=== PATIENT | male | born 1995 | race American Indian/Alaskan Native ===

== ENCOUNTER 2016-12-06 18:24 | Emergency (ER) | payer BC, MEDICAID ==
[2016-12-06 18:35] VITALS: BMI 34.2
[2016-12-06 18:38] VITALS: TEMP 98.1; O2SAT 100
[2016-12-06] MEDS ORDERED: Sodium Chloride 0.9% 1,000 ML IV STA (19:15)
[2016-12-06 19:50] LABS: ADD MANUAL DIFF? NO
[2016-12-06 20:13] LABS: ALB/GLOB RATIO 1.2 (1.1-1.8); ALKALINE PHOSPHATASE 52 U/L (38-133); ALT/SGPT 32 U/L (7-56); AST/SGOT 28 U/L (15-59); BILIRUBIN,TOTAL 0.7 mg/dL (0.2-1.3); BLOOD UREA NITROGEN 13 mg/dL (7-21); CALCIUM 9.1 mg/dL (8.4-10.5); CARBON DIOXIDE 30 mmol/L (21-33); CHLORIDE 103 mmol/L (98-107); GFR AFRICAN-AMERICAN > 60; GLUCOSE,RANDOM 84 mg/dL (70-110); POTASSIUM 3.6 mmol/L (3.6-5.0); SODIUM 139 mmol/L (132-148); TOTAL PROTEIN 6.6 g/dL (5.8-8.3)
[2016-12-06 20:33] LABS: WHITE BLOOD COUNT 4.2 10^3/ul (4.5-11.0)
[2016-12-06 20:34] LABS: BASO % 0.2 % (0.0-3.0); EOS % 0.7 % (1.5-5.0); GRAN # 2.28 (1.4-6.5); HEMATOCRIT 44.4 % (42.0-52.0); LYMPH # 1.5 (1.2-3.4); LYMPH % 34.5 % (22.0-35.0); MEAN CELL VOLUME 82.8 fL (80.0-105.0); MEAN CORPUSCULAR HEMOGLOBIN 26.9 pg (25.0-35.0); MEAN CORPUSCULAR HGB CONC 32.4 g/dl (31.0-37.0); MONO % 10.6 % (1.0-6.0); PLATELET COUNT 212 10^3/uL (120.0-450.0); RED CELL DISTRIBUTION WIDTH 14.8 % (11.5-14.5)
[2016-12-06 20:35] LABS: BASO # 0.01 K/mm3 (0.0-2.0); MONO # 0.5 (0.1-0.6)
[2016-12-06 21:34] VITALS: RESP 18
--- NOTE | 2016-12-06 22:33 | ED PDOC ---
Arrival/HPI - General Chief Complaint: Dizziness/Lightheaded Time Seen by Provider: 12/06/16 19:14 Historian: Patient - History of Present Illness Narrative History of Present Illness (Text): 12/06/16 22:29 20-year-old male presents today with a one-month history of intermittent dizziness. Patient states for the past month and a half or so while at work when bending over he starts to feel dizzy to the point where he is about to pass out. Patient states it lasts for about "20 [place]'s" and then improves. Patient denies any recent trauma or injury. Patient states occasionally he smokes marijuana. He denies chest pain or shortness of breath. He denies abdominal pain. Patient states these have been occurring on and off over the past month and a half. Patient states this happened today while at work and he did not feel well so he came to the hospital for evaluation. Time/Duration: > month Symptom Onset: Sudden Symptom Course: Intermittent Quality: Other (no pain) Past Medical History - Provider Review Nursing Documentation Reviewed: Yes - Travel History Have you recently traveled outside [place] w/in the past 3 mons?: No - Infectious Disease Hx of Infectious Diseases: None - Psychiatric Hx Substance Use: Yes - Anesthesia Hx Anesthesia: No Family/Social History - Physician Review Nursing Documentation Reviewed: Yes Family/Social History: Unknown Family HX Smoking Status: Never Smoked Hx Alcohol Use: Yes Frequency of alcohol use: Socially Hx Substance Use: Yes Substance used: weed Allergies/Home Meds Allergies/Adverse Reactions: Allergies No Known Allergies Allergy (Verified 12/06/16 18:34) Review of Systems - Review of Systems Constitutional: absent: Fatigue, Fevers Eyes: absent: Vision Changes, Photophobia, Eye Pain ENT: absent: Sinus Congestion Respiratory: absent: SOB, Cough Cardiovascular: absent: Chest Pain, Palpitations Gastrointestinal: absent: Abdominal Pain, Nausea, Vomiting Genitourinary Male: absent: Dysuria, Frequency Musculoskeletal: absent: Arthralgias, Back Pain, Neck Pain Skin: absent: Rash, Pruritis Neurological: Dizziness. absent: Headache Psychiatric: absent: Anxiety, Depression, Suicidal Ideation Physical Exam Vital Signs Reviewed: Yes Vital Signs Temp Pulse Resp BP Pulse Ox 12/06/16 23:48 60 18 124/59 L 100 12/06/16 21:33 63 18 127/63 100 12/06/16 18:38 98.1 F 73 19 115/72 100 Temperature: Afebrile Blood Pressure: Normal Pulse: Regular Respiratory Rate: Normal Appearance: Positive for: Well-Appearing, Non-Toxic, Comfortable Pain Distress: None Mental Status: Positive for: Alert and Oriented X 3 - Systems Exam Head: Present: Atraumatic Pupils: Present: PERRL Extroacular Muscles: Present: EOMI Conjunctiva: Present: Normal Ears: Present: Normal, NORMAL TM Mouth: Present: Moist Mucous Membranes Pharnyx: Present: Normal. No: ERYTHEMA Nose (Internal): Present: Normal Inspection Neck: Present: Normal Range of Motion Respiratory/Chest: Present: Clear to Auscultation, Good Air Exchange. No: Respiratory Distress, Accessory Muscle Use Cardiovascular: Present: Regular Rate and Rhythm, Normal S1, S2. No: Murmurs Abdomen: Present: Normal Bowel Sounds. No: Tenderness, Distention, Peritoneal Signs, Rebound, Guarding Back: Present: Normal Inspection Upper Extremity: Present: Normal ROM Lower Extremity: Present: Normal ROM Neurological: Present: GCS=15, Speech Normal, Motor Func Grossly Intact, Normal Sensory Function Skin: Present: Warm, Dry, Normal Color. No: Rashes Psychiatric: Present: Alert, Oriented x 3 Medical Decision Making ED Course and Treatment: 12/06/16 22:42 20-year-old male with a one to 2 month history of dizziness intermittently usually while bending over. CBC within normal limits CMP within normal limits Urinalysis: WNL Urine drug screen: + marijuana trop; wnl ckp; 341 EKG shows sinus bradycardia at 57 bpm normal axis normal interval and no ST elevation ct head; FINDINGS: Brain: Unremarkable. No hemorrhage. No significant white matter disease. No edema. Ventricles: Unremarkable. No ventriculomegaly. Bones/joints: Unremarkable. No acute fracture. Soft tissues: Unremarkable. Sinuses: Unremarkable as visualized. No acute sinusitis. Mastoid air cells: Unremarkable as visualized. No mastoid effusion. Other findings: No acute findings. IMPRESSION: No acute findings 12/06/16 22:46 NS iv bolus given antivert po tylenol po discussed all results with patient/parent in depth; advised stop using marijuana / f/u with the neurologist within the next 2 days. pt reassessment; ambulates with steady gait; denies dizziness at present time. Patient verbalizes understanding of discharge instructions and need for immediate followup. all aspects of this case were discussed the attending of record. Impression: Dizziness, marijuana usage Increase fluids Meclizine every 8 hours as needed for dizziness follow up with the neurologist within the next 2 days follow up with the primary care physician within the next 2 days return if symptoms worsen,persist or if new symptoms develop . 12/07/16 00:08 - Lab Interpretations Lab Results: 12/06/16 19:45 12/06/16 19:45 Lab Results 12/06/16 22:35: Urine Opiates Screen Negative, Urine Methadone Screen Negative, Ur Barbiturates Screen Negative, Ur Phencyclidine Scrn Negative, Ur Amphetamines Screen Negative, U Benzodiazepines Scrn Negative, U Oth Cocaine Metabols Negative, U Cannabinoids Screen Positive H 12/06/16 22:35: Urine Color Yellow, Urine Appearance Clear, Urine pH 6.0, Ur Specific [place] >= 1.030, Urine Protein Trace H, Urine Glucose (UA) Negative, Urine Ketones Negative, Urine Blood Negative, Urine Nitrate Negative, Urine Bilirubin Negative, Urine Urobilinogen 1.0 H, Ur Leukocyte Esterase Negative, Urine RBC 0 - 2, Urine WBC 1 - 3, Ur Epithelial Cells 0 - 2, Urine Bacteria Small, Urine Other Mucus 12/06/16 19:45: Lactate Dehydrogenase 473, Total Creatine Kinase 341 H, CK-MB ( CK-2) 2.1, CK-MB (CK-2) % Cancelled, Troponin I < 0.01 12/06/16 19:45: WBC 4.2 L, RBC 5.36, Hgb 14.4, Hct 44.4, MCV 82.8, MCH 26.9, MCHC 32.4, RDW 14.8 H, Plt Count 212, MPV 10.0, Gran % 54.0, Lymph % (Auto) 34.5 , [place] % (Auto) 10.6 H, Eos % (Auto) 0.7 L, Baso % (Auto) 0.2, Gran # 2.28, Lymph # 1.5, [place] # 0.5, Eos # 0.0, Baso # 0.01 12/06/16 19:45: Sodium 139, Potassium 3.6, Chloride 103, Carbon Dioxide 30, Anion Gap 10, BUN 13, Creatinine 0.8, Est GFR ( Amer) > 60, Est GFR (Non- Af Amer) > 60, Random Glucose 84, Calcium 9.1, Total Bilirubin 0.7, AST 28, ALT 32, Alkaline Phosphatase 52, Total Protein 6.6, Albumin 3.6, Globulin 3.0, Albumin/Globulin Ratio 1.2 - RAD Interpretation Radiology Orders: 12/06/16 20:11 HEAD W/O CONTRAST [CT] Stat - Medication Orders Current Medication Orders: Discontinued Medications Acetaminophen (Tylenol 325mg Tab) 975 mg PO STAT STA Stop: 12/06/16 23:27 Last Admin: 12/06/16 23:41 Dose: 975 mg Sodium Chloride (Sodium Chloride 0.9%) 1,000 mls @ 999 mls/hr IV .Q1H1M STA Stop: 12/06/16 20:15 Last Admin: 12/06/16 20:09 Dose: 999 mls/hr Meclizine HCl (Antivert) 25 mg PO STAT STA Stop: 12/06/16 23:26 Last Admin: 12/06/16 23:41 Dose: 25 mg Disposition/Present on Arrival - Present on Arrival Any Indicators Present on Arrival: No History of DVT/PE: No History of Uncontrolled Diabetes: No Urinary Catheter: No History of Decub. Ulcer: No History Surgical Site Infection Following: None - Disposition Have Diagnosis and Disposition been Completed?: Yes Diagnosis: Dizziness, Marijuana use Disposition: HOME/ ROUTINE Disposition Time: 23:42 Patient Plan: Discharge Condition: GOOD Discharge Instructions (ExitCare): Dizziness (ED) Additional Instructions: Increase fluids Meclizine every 8 hours as needed for dizziness follow up with the neurologist within the next 2 days follow up with the primary care physician within the next 2 days return if symptoms worsen,persist or if new symptoms develop . Prescriptions: Meclizine [Meclizine*] 25 mg PO Q8 #10 tab Referrals: Meet Pérez MD [Staff Provider] - Follow up with primary [facility] [place] - Follow up with primary Kim Claros MD [Staff Provider] - Follow up with primary Forms: WORK NOTE
[2016-12-06 22:51] LABS: URINE BILIRUBIN NEGATIVE (NEGATIVE); URINE BLOOD NEGATIVE (NEGATIVE); URINE GLUCOSE (UA) NEGATIVE (NEGATIVE); URINE KETONE NEGATIVE (NEGATIVE); URINE LEUKOCYTE ESTERASE NEGATIVE Leu/uL (NEGATIVE); URINE PROTEIN TRACE mg/dL (<30 mg/dL)
[2016-12-06 22:55] LABS: TROPONIN I < 0.01 ng/mL
[2016-12-06 22:56] LABS: URINE APPEARANCE CLEAR (CLEAR); URINE COLOR YELLOW (YELLOW)
[2016-12-06 23:18] LABS: URINE BACTERIA SMALL (NEG); URINE EPITHELIAL CELLS 0 - 2 /hpf (0-5); URINE RBC 0 - 2 /hpf (0-2)
[2016-12-06 23:48] VITALS: BP 124/59; PULSE 60
--- NOTE | 2016-12-07 07:44 | CT ---
PROCEDURE: CT HEAD WITHOUT CONTRAST. HISTORY: DIZZINESS COMPARISON: None available. TECHNIQUE: Axial computed tomography images were obtained through the head/brain without intravenous contrast. Radiation dose: Total exam DLP = 677.45 mGy-cm. This CT exam was performed using one or more of the following dose reduction techniques: Automated exposure control, adjustment of the mA and/or kV according to patient size, and/or use of iterative reconstruction technique. FINDINGS: HEMORRHAGE: No intracranial hemorrhage. BRAIN: No mass effect or edema. No atrophy or chronic microvascular ischemic changes. No evidence of acute infarct. VENTRICLES: Unremarkable. No hydrocephalus. CALVARIUM: Unremarkable. PARANASAL SINUSES: Unremarkable as visualized. No significant inflammatory changes. MASTOID AIR CELLS: Unremarkable as visualized. No inflammatory changes. OTHER FINDINGS: None. IMPRESSION: No intracranial mass, hemorrhage or evidence of acute infarct. Preliminary interpretation of this examination was reported by [facility] at 8:38 p.m. on 12/06/2016. There is concurrence of this report with the preliminary interpretation.
--- NOTE | 2016-12-07 23:01 | CARD ---
APPROVED REPORT EKG Measurement Heart [id number] CO [id number] <Conclusion> Sinus bradycardia Nonspecific T wave abnormality Abnormal ECG
== END 2016-12-07 00:05 | disposition home or self-care (01) ==
LOC: ED 18:24
DX: F12.90 Cannabis use, unspecified, uncomplicated (principal); R42 Dizziness and giddiness
CPT/HCPCS: 70450; 80053; 81001; 82550; 82553; 83615; 84484; 85025; 93005; 96360; 99285; G0480; J7040

== ENCOUNTER 2017-01-01 16:44 | Emergency (ER) | payer BC, MEDICAID ==
[2017-01-01 16:54] VITALS: BMI 33.2
[2017-01-01 16:57] VITALS: RESP 18; TEMP 98.2; O2SAT 98
[2017-01-01] MEDS ORDERED: Sodium Chloride 0.9% 1,000 ML IV STA (17:09)
--- NOTE | 2017-01-01 17:13 | ED PDOC ---
Arrival/HPI - General Chief Complaint: Chest Pain Time Seen by Provider: 01/01/17 16:54 Historian: Patient, Parent - History of Present Illness Narrative History of Present Illness (Text): 01/01/17 17:10 21 y/o male, no pmh, psychiatric history including drug abuse, work in [employer], c/o chest pain started last night. Pt. stated that he started to have the chest pain started around 6pm last night after he was partying with drinking alcohol and smoking marijuanna, no coughing or night sweat, no dizziness, no shortness of breath or coughing, no palpitation, no numbness or tingling, no other medical or psychological complaints. Past Medical History - Provider Review Nursing Documentation Reviewed: Yes - Infectious Disease Hx of Infectious Diseases: None - Psychiatric Hx Substance Use: Yes - Anesthesia Hx Anesthesia: No Family/Social History - Physician Review Nursing Documentation Reviewed: Yes Family/Social History: Unknown Family HX Smoking Status: Light Smoker < 10 Cigarettes Daily Hx Alcohol Use: Yes Frequency of alcohol use: Socially Hx Substance Use: Yes Substance used: weed Allergies/Home Meds Allergies/Adverse Reactions: Allergies No Known Allergies Allergy (Verified 01/01/17 16:53) Home Medications: Home Meds Medication Instructions Recorded Confirmed No Known Home Med 01/01/17 01/01/17 Review of Systems - Review of Systems Constitutional: absent: Fatigue, Fevers Eyes: absent: Vision Changes ENT: absent: Hearing Changes Respiratory: absent: SOB, Cough, Sputum Cardiovascular: absent: Chest Pain Gastrointestinal: absent: Abdominal Pain, Nausea, Vomiting Musculoskeletal: absent: Arthralgias, Back Pain, Neck Pain Skin: absent: Rash, Pruritis Neurological: absent: Headache, Dizziness, Focal Weakness, Gait Changes Psychiatric: absent: Anxiety, Depression, Suicidal Ideation Physical Exam Vital Signs Temp Pulse Resp BP Pulse Ox 01/01/17 17:56 72 18 125/65 98 01/01/17 16:56 98.2 F 76 18 127/64 98 Temperature: Afebrile Blood Pressure: Normal Pulse: Regular Respiratory Rate: Normal Appearance: Positive for: Well-Appearing, Non-Toxic, Comfortable Pain Distress: None Mental Status: Positive for: Alert and Oriented X 3 - Systems Exam Head: Present: Atraumatic, Normocephalic Pupils: Present: PERRL Extroacular Muscles: Present: EOMI Conjunctiva: Present: Normal Ears: Present: NORMAL TM, Normal Canal. No: Erythema Mouth: Present: Moist Mucous Membranes Neck: Present: Normal Range of Motion Respiratory/Chest: Present: Clear to Auscultation, Good Air Exchange. No: Respiratory Distress, Accessory Muscle Use, Wheezes, Decreased Breath Sounds, Rales, Retracting, Rhonchi, Tachypneic, Tender to Palpation Cardiovascular: Present: Regular Rate and Rhythm, Normal S1, S2. No: Murmurs Abdomen: Present: Normal Bowel Sounds. No: Tenderness, Distention, Peritoneal Signs Back: Present: Normal Inspection Upper Extremity: Present: Normal Inspection. No: Cyanosis, Edema Lower Extremity: Present: Normal Inspection. No: Edema Neurological: Present: GCS=15, CN II-XII Intact, Speech Normal, Motor Func Grossly Intact, Gait Normal, Memory Normal Skin: Present: Warm, Dry, Normal Color. No: Rashes Psychiatric: Present: Alert, Oriented x 3, Normal Insight, Normal Concentration Medical Decision Making ED Course and Treatment: 01/01/17 17:15 -labs/uds/alcohol -EKG -Chest xray 01/01/17 19:42 -EKG: NSR @ 76 BPM, no ST elevation or depression, no T wave inversion compared with previous ekg. -Chest xray show no active disease -Troponin is negative after onset of the pain 24 hours ago, asymptomatic now. -Labs show no acute findings -UDS show +cannabinoid which it was positive from last visit as well. -Pt. feels well, no chest pain or shortness of breath, awake and alert, explained all labs and radiology results to the patient which I advised him to have outpatient fishing tool operator and pmd follow up. -Discharge home with education on bed rest, stay hydrated, no gym or exercise until clear by the fishing tool operator and pmd, follow up with your own pmd and fishing tool operator within 2 days, return to the ER for any new or worsening signs or symptoms. - Lab Interpretations Lab Results: 01/01/17 17:30 01/01/17 17:30 Lab Results 01/01/17 18:00: Urine Opiates Screen Negative, Urine Methadone Screen Negative, Ur Barbiturates Screen Negative, Ur Phencyclidine Scrn Negative, Ur Amphetamines Screen Negative, U Benzodiazepines Scrn Negative, U Oth Cocaine Metabols Negative, U Cannabinoids Screen Positive H 01/01/17 17:30: Alcohol, Quantitative < 10 01/01/17 17:30: Sodium 138, Potassium 3.9, Chloride 105, Carbon Dioxide 26, Anion Gap 11, BUN 13, Creatinine 0.8, Est GFR ( Amer) > 60, Est GFR (Non- Af Amer) > 60, Random Glucose 92, Calcium 9.1, Total Bilirubin 0.5, AST 28, ALT 33, Alkaline Phosphatase 77, Lactate Dehydrogenase 476, Total Creatine Kinase 303 H, CK-MB (CK-2) Pending, CK-MB (CK-2) % Pending, Troponin I < 0.01, Total Protein 6.5, Albumin 3.7, Globulin 2.8, Albumin/Globulin Ratio 1.3, Lipase 34 01/01/17 17:30: WBC 4.9, RBC 5.32, Hgb 14.7, Hct 44.9, MCV 84.4, MCH 27.6, MCHC 32.7, RDW 14.6 H, Plt Count 196, MPV 9.6, Gran % 61.3, Lymph % (Auto) 30.4, [place] % (Auto) 7.1 H, Eos % (Auto) 1.0 L, Baso % (Auto) 0.2, Gran # 3.02, Lymph # 1.5, [place] # 0.4, Eos # 0.1, Baso # 0.01 I have reviewed the lab results: Yes Interpretation: No clinic. lab abnormalty - RAD Interpretation Radiology Orders: 01/01/17 17:09 CHEST PORTABLE [RAD] Stat no active disease Consultant Education: Radiologist - Medication Orders Current Medication Orders: Discontinued Medications Sodium Chloride (Sodium Chloride 0.9%) 1,000 mls @ 999 mls/hr IV .Q1H1M STA Stop: 01/01/17 18:09 Last Admin: 01/01/17 18:50 Dose: 999 mls/hr - PA / PROPERTY ECONOMIST / Resident Statement MD/DO has reviewed & agrees with the documentation as recorded. Disposition/Present on Arrival - Present on Arrival Any Indicators Present on Arrival: No History of DVT/PE: No History of Uncontrolled Diabetes: No Urinary Catheter: No History of Decub. Ulcer: No History Surgical Site Infection Following: None - Disposition Have Diagnosis and Disposition been Completed?: Yes Diagnosis: History of chest pain, Atypical chest pain, Drug abuse Disposition: HOME/ ROUTINE Disposition Time: 18:53 Patient Plan: Discharge Patient Problems: Current Active Problems Problem Status Onset Atypical chest pain Acute Drug abuse Acute History of chest pain Acute Condition: GOOD Discharge Instructions (ExitCare): Chest Pain (ED) Print Language: UKRAINIAN Additional Instructions: Discharge home with education on bed rest, stay hydrated, no gym or exercise until clear by the fishing tool operator and pmd, follow up with your own pmd and fishing tool operator within 2 days, return to the ER for any new or worsening signs or symptoms. Referrals: Angélica Martinez MD [Primary Care Provider] - Follow up with primary Suly Perez MD [Staff Provider] - Follow up with primary Forms: WORK NOTE
--- NOTE | 2017-01-01 17:24 | RAD ---
HISTORY: Medical clearance. Portable study 17:11. COMPARISON: No prior. FINDINGS: LUNGS: No active pulmonary disease. PLEURA: No significant pleural effusion identified, no pneumothorax apparent. CARDIOVASCULAR: Normal. OSSEOUS STRUCTURES: No significant abnormalities. VISUALIZED UPPER ABDOMEN: Normal. OTHER FINDINGS: None. IMPRESSION: No active disease. Concordant results with the preliminary interpretation rendered by the emergency department physician procedure.
[2017-01-01 18:05] LABS: ADD MANUAL DIFF? NO
[2017-01-01 18:11] LABS: BASO # 0.01 K/mm3 (0.0-2.0); BASO % 0.2 % (0.0-3.0); EOS # 0.1 (0.0-0.7); GRAN # 3.02 (1.4-6.5); GRAN % 61.3 % (50.0-68.0); HEMATOCRIT 44.9 % (42.0-52.0); LYMPH # 1.5 (1.2-3.4); LYMPH % 30.4 % (22.0-35.0); MEAN CELL VOLUME 84.4 fL (80.0-105.0); MEAN CORPUSCULAR HEMOGLOBIN 27.6 pg (25.0-35.0); MEAN CORPUSCULAR HGB CONC 32.7 g/dl (31.0-37.0); MEAN PLATELET VOLUME 9.6 fl (7.0-11.0); MONO # 0.4 (0.1-0.6); MONO % 7.1 % (1.0-6.0); PLATELET COUNT 196 10^3/uL (120.0-450.0); RED CELL DISTRIBUTION WIDTH 14.6 % (11.5-14.5); WHITE BLOOD COUNT 4.9 10^3/ul (4.5-11.0)
[2017-01-01 18:48] LABS: ALB/GLOB RATIO 1.3 (1.1-1.8); ALKALINE PHOSPHATASE 77 U/L (38-133); ALT/SGPT 33 U/L (7-56); AST/SGOT 28 U/L (15-59); BILIRUBIN,TOTAL 0.5 mg/dL (0.2-1.3); BLOOD UREA NITROGEN 13 mg/dL (7-21); CALCIUM 9.1 mg/dL (8.4-10.5); CARBON DIOXIDE 26 mmol/L (21-33); CHLORIDE 105 mmol/L (98-107); GFR AFRICAN-AMERICAN > 60; GLUCOSE,RANDOM 92 mg/dL (70-110); LIPASE 34 U/L (23-300); POTASSIUM 3.9 mmol/L (3.6-5.0); SODIUM 138 mmol/L (132-148); TOTAL PROTEIN 6.5 g/dL (5.8-8.3)
[2017-01-01 19:36] LABS: TROPONIN I < 0.01 ng/mL
[2017-01-01 20:07] VITALS: BP 128/61; PULSE 71
--- NOTE | 2017-01-02 10:07 | CARD ---
APPROVED REPORT EKG Measurement Heart [id number] <Conclusion> Normal sinus rhythm Nonspecific T wave abnormality No change
== END 2017-01-01 20:05 | disposition home or self-care (01) ==
LOC: ED 16:44
DX: R07.89 Other chest pain (principal); F19.10 Other psychoactive substance abuse, uncomplicated
CPT/HCPCS: 71010; 80053; 82550; 82553; 83615; 83690; 84484; 85025; 93005; 99283; G0480; J7040

== ENCOUNTER 2017-06-21 07:52 | Emergency (ER) | payer BC, MEDICAID ==
[2017-06-21 07:52] VITALS: BMI 33.2
[2017-06-21 08:09] VITALS: BP 124/86; PULSE 67; RESP 18; TEMP 98.6; O2SAT 96
[2017-06-21] MEDS ORDERED: Lidocaine 1% Inj (20ml) ONE (08:19)
--- NOTE | 2017-06-21 08:23 | ED PDOC ---
Arrival/HPI - General Chief Complaint: Upper Extremity Problem/Injury Time Seen by Provider: 06/21/17 08:12 Historian: Patient, Parent - History of Present Illness Time/Duration: Other (Several days) Symptom Onset: Gradual Symptom Course: Worsening Quality: Aching Severity Level: Mild Associated Symptoms (Text): 06/21/17 08:21 Patient reports a several day history of right shoulder pain. Patient is left- handed. He reports that the pain was exacerbated at work yesterday when moving some heavy objects. He also suffered a splinter in his right dorsal thumb yesterday at work. No numbness tingling or paresthesias. No radiation of the pain. No chest pain or dyspnea. Past Medical History - Infectious Disease Hx of Infectious Diseases: None - Cardiac Hx Angina: Yes (chest pain) - Psychiatric Hx Substance Use: Yes - Anesthesia Hx Anesthesia: No Family/Social History - Physician Review Nursing Documentation Reviewed: Yes Family/Social History: Unknown Family HX Smoking Status: Light Smoker < 10 Cigarettes Daily Hx Alcohol Use: Yes Hx Substance Use: Yes Substance used: weed Allergies/Home Meds Allergies/Adverse Reactions: Allergies No Known Allergies Allergy (Verified 01/01/17 16:53) Review of Systems - Physician Review All systems were reviewed & negative as marked: Yes - Review of Systems Respiratory: Normal Cardiovascular: Normal Physical Exam Vital Signs Temp Pulse Resp BP Pulse Ox 06/21/17 07:52 98.6 F 67 18 124/86 96 Temperature: Afebrile Blood Pressure: Normal Pulse: Regular Respiratory Rate: Normal Appearance: Positive for: Well-Appearing, Non-Toxic, Comfortable Pain Distress: Mild Mental Status: Positive for: Alert and Oriented X 3 - Systems Exam Head: Present: Atraumatic, Normocephalic Neck: Present: Normal Range of Motion. No: MIDLINE TENDERNESS, Paraspinal Tenderness Respiratory/Chest: Present: Clear to Auscultation, Good Air Exchange. No: Respiratory Distress, Accessory Muscle Use Cardiovascular: Present: Regular Rate and Rhythm, Normal S1, S2. No: Murmurs Upper Extremity: Present: Normal Inspection, Normal ROM, NORMAL PULSES, Tenderness, Neurovascularly Intact, Other (Lateral right shoulder tenderness. 1/ 2 cm splinter in the right dorsal proximal thumb). No: Edema, Swelling, Erythema, Deformity Neurological: Present: GCS=15, CN II-XII Intact, Speech Normal, Motor Func Grossly Intact, Normal Cerebellar Funct Skin: Present: Warm, Dry, Normal Color, Other (Splinter as above). No: Rashes Psychiatric: Present: Alert, Oriented x 3, Normal Insight, Normal Concentration Medical Decision Making ED Course and Treatment: 06/21/17 08:33 Form body removal. The splinter was prepped and draped in usual sterile fashion using Betadine and normal saline solution. 1% plain local lidocaine anesthesia was injected. The splinter was cut down with an 11 blade. Removed sterilely with forceps. Sterile dressing was applied. Tolerated well. - RAD Interpretation Radiology Orders: 06/21/17 08:20 SHOULDER RIGHT [RAD] Stat Shoulder shows no fracture or dislocation Pot Puller: ED Physician - Medication Orders Current Medication Orders: Discontinued Medications Ketorolac Tromethamine (Toradol) 30 mg IM ONCE ONE Stop: 06/21/17 08:46 Disposition/Present on Arrival - Present on Arrival Any Indicators Present on Arrival: No History of DVT/PE: No History of Uncontrolled Diabetes: No Urinary Catheter: No History of Decub. Ulcer: No History Surgical Site Infection Following: None - Disposition Have Diagnosis and Disposition been Completed?: Yes Diagnosis: Foreign body (FB) in soft tissue, Right shoulder strain Disposition: HOME/ ROUTINE Disposition Time: 08:55 Patient Plan: Discharge Condition: GOOD Discharge Instructions (ExitCare): Soft Tissue Foreign Body (ED), Shoulder Sprain (ED) Additional Instructions: Rest and moist heat. Wound check. Follow with PMD. Follow up in ER as needed. Prescriptions: Naproxen [Naprosyn] 500 mg PO BID #14 tab Forms: [facility] ([place]), WORK NOTE
--- NOTE | 2017-06-21 08:59 | RAD ---
PROCEDURE: Radiographs of the Right Shoulder HISTORY: pain COMPARISON: No prior. FINDINGS: BONES: Normal. No fracture. JOINTS: Normal. Glenohumeral and acromioclavicular joints preserved. No osteoarthritis. SOFT TISSUES: Normal. OTHER FINDINGS: None. IMPRESSION: Normal radiographs of the right shoulder.
== END 2017-06-21 09:25 | disposition home or self-care (01) ==
LOC: ED 07:52
DX: S46.911A Strain of unspecified muscle, fascia and tendon at shoulder and upper arm level, right arm, initial encounter (principal); X50.0XXA Overexertion from strenuous movement or load, initial encounter; Y99.0 Civilian activity done for income or pay; S60.351A Superficial foreign body of right thumb, initial encounter; W45.8XXA Other foreign body or object entering through skin, initial encounter; F17.210 Nicotine dependence, cigarettes, uncomplicated

== ENCOUNTER 2018-11-04 14:34 | Emergency (ER) | payer BC ==
[2018-11-04 14:35] VITALS: BMI 33.2
[2018-11-04 14:46] VITALS: RESP 18
--- NOTE | 2018-11-04 14:57 | ED PDOC ---
Arrival/HPI - General Chief Complaint: Medical Clearance Time Seen by Provider: 11/04/18 14:37 Historian: Patient - History of Present Illness Narrative History of Present Illness (Text): 11/04/18 14:54 22 y/o male, no significant pmh, nkda, c/o epigastric pain on and off 1 year. Pt. stated that he has indigestion, admits doesn't eat on time, no weight loss, no black color or bright red color stool, gnawing pain, no chest pain or shortness of breath, no weight loss, no dizziness, no change in vision, no other medical or psychological complaints. Past Medical History - Provider Review Nursing Documentation Reviewed: Yes - Infectious Disease Hx of Infectious Diseases: None - Cardiac Hx Angina: Yes (chest pain) - Psychiatric Hx Substance Use: Yes - Anesthesia Hx Anesthesia: No Hx Anesthesia Reactions: No Hx Malignant Hyperthermia: No Family/Social History - Physician Review Nursing Documentation Reviewed: Yes Family/Social History: Unknown Family HX Smoking Status: Light Smoker < 10 Cigarettes Daily Hx Alcohol Use: Yes Frequency of alcohol use: Socially Hx Substance Use: Yes Substance used: weed Allergies/Home Meds Allergies/Adverse Reactions: Allergies No Known Allergies Allergy (Verified 11/04/18 14:46) Review of Systems - Review of Systems Constitutional: absent: Fatigue, Weight Change, Fevers, Night Sweats Eyes: absent: Vision Changes ENT: absent: Hearing Changes Respiratory: absent: SOB, Cough, Sputum, Wheezing Cardiovascular: absent: Chest Pain Gastrointestinal: Abdominal Pain. absent: Diarrhea, Nausea, Vomiting Musculoskeletal: absent: Arthralgias, Back Pain Skin: absent: Rash, Pruritis Neurological: absent: Headache, Dizziness Psychiatric: absent: Anxiety, Depression, Suicidal Ideation Physical Exam Vital Signs Reviewed: Yes Vital Signs Temp Pulse Resp BP Pulse Ox 11/04/18 14:38 97.5 F L 69 18 121/75 98 Temperature: Afebrile Blood Pressure: Normal Pulse: Regular Respiratory Rate: Normal Appearance: Positive for: Well-Appearing, Non-Toxic, Comfortable Pain Distress: Mild Mental Status: Positive for: Alert and Oriented X 3 - Systems Exam Head: Present: Atraumatic, Normocephalic Pupils: Present: PERRL Extroacular Muscles: Present: EOMI Conjunctiva: Present: Normal Mouth: Present: Moist Mucous Membranes Neck: Present: Normal Range of Motion Respiratory/Chest: Present: Clear to Auscultation, Good Air Exchange. No: Respiratory Distress, Accessory Muscle Use Cardiovascular: Present: Regular Rate and Rhythm, Normal S1, S2. No: Murmurs Abdomen: Present: Normal Bowel Sounds, Other (negative johnson sign, no cva tenderness). No: Tenderness, Distention, Peritoneal Signs, Rebound, Guarding, McBurney's Point Tender, Rovsing's Sign Present, Scars Back: Present: Normal Inspection. No: CVA Tenderness, Midline Tenderness, Paraspinal Tenderness, Pain with Leg Raise, Decubitus Ulcer Upper Extremity: Present: Normal Inspection. No: Cyanosis, Edema Lower Extremity: Present: Normal Inspection. No: Edema Neurological: Present: GCS=15, CN II-XII Intact, Speech Normal, Motor Func Grossly Intact, Normal Cerebellar Funct, Gait Normal, Memory Normal Skin: Present: Warm, Dry, Normal Color. No: Rashes Psychiatric: Present: Alert, Oriented x 3, Normal Insight, Normal Concentration Medical Decision Making ED Course and Treatment: 11/04/18 14:56 -labs -pepcid -observe and reassess 11/04/18 16:02 -Labs are non significant -Pt. feels much better, no pain, discussed about the results, will discharge home. -Discharge home with pepcid, follow up with your own pmd and GI within 2 days, return to the ER for any new or worsening signs or symptoms. Disposition/Present on Arrival - Present on Arrival Any Indicators Present on Arrival: No History of DVT/PE: No History of Uncontrolled Diabetes: No Urinary Catheter: No History of Decub. Ulcer: No History Surgical Site Infection Following: None - Disposition Have Diagnosis and Disposition been Completed?: Yes Diagnosis: Gastritis Disposition: HOME/ ROUTINE Disposition Time: 16:04 Patient Plan: Discharge Condition: GOOD Additional Instructions: -Discharge home with pepcid, follow up with your own pmd and GI within 2 days, return to the ER for any new or worsening signs or symptoms. Prescriptions: Famotidine [Pepcid] 20 mg PO BID PRN #20 tab PRN Reason: Other Referrals: [facility] at [facility] [place] [Outside] - Follow up with primary Nghia Huddleston MD [Staff Provider] - Follow up with primary Forms: [employer] (Turkish), WORK NOTE
[2018-11-04 15:24] LABS: BASO # 0.02 K/mm3 (0.0-2.0); BASO % 0.4 % (0.0-3.0); EOS % 0.6 % (1.5-5.0); LYMPH # 1.7 (1.2-3.4); MEAN CELL VOLUME 84.1 fl (80.0-105.0); MEAN CORPUSCULAR HEMOGLOBIN 26.9 pg (25.0-35.0); MEAN PLATELET VOLUME 9.4 fl (7.0-11.0); MONO # 0.5 (0.1-0.6); MONO % 9.9 % (1.0-6.0); RBC 5.58 10^6/uL (3.5-6.1); WHITE BLOOD COUNT 4.8 10^3/uL (4.5-11.0)
[2018-11-04 15:35] LABS: ALB/GLOB RATIO 1.3 (1.1-1.8); ALBUMIN 3.9 g/dL (3.0-4.8); ALT/SGPT 16 U/L (7-56); AST/SGOT 24 U/L (17-59); BLOOD UREA NITROGEN 16 mg/dL (7-21); CALCIUM 8.8 mg/dL (8.4-10.5); GFR NON-AFRICAN AMERICAN > 60; LIPASE 42 U/L (23-300)
[2018-11-04 16:09] VITALS: BP 119/53; PULSE 75; TEMP 988; O2SAT 99
== END 2018-11-04 16:12 | disposition home or self-care (01) ==
LOC: ED 14:34
DX: K29.70 Gastritis, unspecified, without bleeding (principal)